=== PATIENT | male | born 1940 | race Caucasian/White ===

== ENCOUNTER → 2016-10-12 | Emergency (ER) | payer MEDICARE ==
[~2016-10-12] VITALS: Ht 185.4 cm; Wt 79.8 kg
[2016-10-12 16:56] LABS: BASOPHILS % (AUTO) 0.5 % (0.0-2.0); DIFF TOTAL % 100 %; EOSINOPHILS # (AUTO) 0.1 /CMM (0.0-0.7); EOSINOPHILS % (AUTO) 1.7 % (0.0-6.0); HEMATOCRIT 32 % (39-51); HEMOGLOBIN 10.6 g/dL (13.5-17.5); LYMPHOCYTES # (AUTO) 1.4 /CMM (0.8-4.8); MEAN CORPUSCULAR HEMOGLOBIN 31 PG (26.0-33.0); MEAN CORPUSCULAR HGB CONC 34 g/dl (31.0-36.0); MEAN CORPUSCULAR VOLUME 92 fL (80-96); MONOCYTES # (AUTO) 0.5 /CMM (0.1-1.30); MONOCYTES % (AUTO) 10.3 % (2.0-12.0); NEUTROPHILS # (AUTO) 2.5 /CMM (1.8-8.9); NEUTROPHILS % (AUTO) 56.5 % (43.0-81.0); PLATELET COUNT (AUTO) 203 /CMM (150-450); RED BLOOD CELL COUNT(AUTO) 3.44 MIL/uL (4.5-6.0); WHITE BLOOD COUNT (AUTO) 4.5 K/uL (4.3-11.0)
[2016-10-12 17:08] LABS: ANION GAP 10 (5-14); CALCIUM, SERUM 8.5 mg/dL (8.5-10.1); CARBON DIOXIDE 31 mmol/L (21-32); CHLORIDE 107 mmol/L (98-107); CREATININE 0.8 mg/dL (0.6-1.3); GLUCOSE 91 mg/dL (74-106); POTASSIUM 3.8 mmol/L (3.5-5.1); SODIUM SERUM 144 mmol/L (136-145); UREA NITROGEN, BLOOD 17 mg/dL (7-18)
[2016-10-12 17:16] LABS: TROPONIN I < 0.017 ng/mL (0.00-0.056)
[2016-10-12 18:33] VITALS: BP 121/77
== END | disposition home or self-care (01) ==
LOC: ER 16:50
DX: R60.0 Localized edema (principal)
CPT/HCPCS: 36415; 71010; 80048; 83880; 84484; 85025; 93005; 93970; 99285; A4606; A6403; Z7610

== ENCOUNTER 2017-11-01 13:02 | Inpatient (IN) | payer MEDICARE ==
[~2017-11-01] VITALS: Ht 185.4 cm; Wt 75.7 kg
--- NOTE | 2017-11-01 13:11 | NUR ---
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 ALERT ORIENTED ABLE TO MOVE EXTREMITIES NO DRIFT. DENIES ANY PAIN. PLACED ON MONITOR. AWAITING MD ORDER.
--- NOTE | 2017-11-01 13:25 | NUR ---
RFA #20 IV ACCESS. BLOOD SAMPLE COLLECTED SENT TO LAB
--- NOTE | 2017-11-01 13:40 | NUR ---
URINE SAMPLE COLLECTED SENT TO LAB
[2017-11-01 14:48] LABS: BASOPHILS % (AUTO) 0.5 % (0.0-2.0); EOSINOPHILS # (AUTO) 0.1 /CMM (0.0-0.7); EOSINOPHILS % (AUTO) 1.4 % (0.0-6.0); HEMATOCRIT 40 % (39-51); HEMOGLOBIN 13.7 g/dL (13.5-17.5); MEAN CORPUSCULAR HEMOGLOBIN 31 PG (26.0-33.0); MEAN CORPUSCULAR HGB CONC 34 g/dl (31.0-36.0); MEAN CORPUSCULAR VOLUME 90 fL (80-96); MONOCYTES # (AUTO) 0.4 /CMM (0.1-1.30); MONOCYTES % (AUTO) 6.5 % (2.0-12.0); NEUTROPHILS # (AUTO) 3.3 /CMM (1.8-8.9); NEUTROPHILS % (AUTO) 57.6 % (43.0-81.0); PLATELET COUNT (AUTO) 194 /CMM (150-450); RDW COEFFICIENT OF VARIATION 13.1 (11.5-15.0); RED BLOOD CELL COUNT(AUTO) 4.45 MIL/uL (4.5-6.0); WHITE BLOOD COUNT (AUTO) 5.8 K/uL (4.3-11.0)
[2017-11-01 15:01] LABS: APPEARANCE,URINE CLEAR (CLEAR); BILIRUBIN,URINE NEGATIVE (NEGATIVE); BLOOD, URINE NEGATIVE Ery/uL (NEGATIVE); COLOR,URINE YELLOW (YELLOW); KETONES,URINE NEGATIVE (NEGATIVE); LEUKOCYTE ESTERASE ,URINE NEGATIVE (NEGATIVE); NITRITE, URINE NEGATIVE (NEGATIVE); PH,URINE 6.5 (5.0-8.0); PROTEIN,URINE NEGATIVE (NEGATIVE); UGLUCOSE NEGATIVE (NEGATIVE); UROBILINOGEN,URINE 0.2 EU/dL (0.2)
[2017-11-01] MEDS ORDERED: DONE10TA44 PO (15:03)
[2017-11-01] MEDS ORDERED: CHOL10002 PO (15:03)
[2017-11-01] MEDS ORDERED: SIMV10TA6 PO (15:03)
[2017-11-01] MEDS ORDERED: MEMA10TA PO (15:03)
[2017-11-01 15:09] LABS: INR 0.94 (0.85-1.15)
[2017-11-01 15:16] LABS: CALCIUM, SERUM 9.1 mg/dL (8.5-10.1); CARBON DIOXIDE 27 mmol/L (21-32); CHLORIDE 106 mmol/L (98-107); CREATININE 0.8 mg/dL (0.6-1.3); GLUCOSE 81 mg/dL (74-106); POTASSIUM 4.2 mmol/L (3.5-5.1); SODIUM SERUM 141 mmol/L (136-145); TROPONIN I < 0.017 ng/mL (0.00-0.056); UREA NITROGEN, BLOOD 12 mg/dL (7-18)
[2017-11-01 15:25] LABS: ALANINE AMINOTRANSFERASE 38 U/L (12-78); ALBUMIN 3.5 g/dL (3.4-5.0); ALKALINE PHOSPHATASE 120 U/L (46-116); ASPARTATE AMINOTRANSFERASE 31 U/L (15-37); BILIRUBIN,DIRECT 0.1 mg/dL (0.0-0.2); BILIRUBIN,TOTAL 0.5 mg/dL (0.2-1.0); TOTAL PROTEIN, SERUM 7.6 g/dL (6.4-8.2)
--- NOTE | 2017-11-01 16:25 | NUR ---
PATIENT ASSIGNED TO TELE 323-2, DX GENERALIZED WEAKNESS, ADMITTING PHYSICIAN DR RIVERA
--- NOTE | 2017-11-01 18:03 | NUR ---
GAVE REPORT TO [facility] TELE ROOM 323-[address] RIVERA DX GENERALZIED WEAKNESS
[2017-11-01] MEDS ORDERED: HYDROCODONE/APAP 5/325MG 1 EACH TABLET PO PRN (19:00)
[2017-11-01] MEDS ORDERED: MAG HYDROX/AL HYDROX/SIMETH 30 ML UDC PO PRN (19:00)
[2017-11-01] MEDS ORDERED: ONDANSETRON HCL/PF 4 MG/2 ML VIAL IVP PRN (19:00)
[2017-11-01] MEDS ORDERED: Z GUARD REMEDY 2 OZ OINT TP PRN (19:00)
[2017-11-01] MEDS ORDERED: ACETAMINOPHEN 325 MG TABLET PO PRN (19:00)
[2017-11-01] MEDS ORDERED: MAGNESIUM HYDROXIDE 30 ML UDC PO PRN (19:00)
[2017-11-01] MEDS ORDERED: ZOLPIDEM TARTRATE 5 MG TABLET PO PRN (19:00)
--- NOTE | 2017-11-01 19:08 | NUR ---
TELE/RN RECEIVE PATIENT FROM E.R. BY [facility] ACCOMPANIED BY FAMILY MEMBER. PATIENT IS AWAKE, ALERT, ORIENTED, COMFORTABLE, NO C/O PAIN, NO DISTRESS NOTED, ADMISSION DONE PER PROTOCOL, PLAN OF CARE DISCUSSED WITH PATIENT AND FAMILY MEMBER VERBALIZED UNDERSTANDING AND IN AGREEMENT TO THE PLAN OF CARE.
--- NOTE | 2017-11-01 19:08 | NUR ---
TELE/RN FALL PRECAUTION INSTITUTED PER PROTOCOL.
[2017-11-01 20:00] VITALS: BP 108/63
[2017-11-01] MEDS: IV NS 0.9% 1,000 ML IV PRN (20:49)
[2017-11-01] MEDS ORDERED: ASPI-605 PO (21:18)
[2017-11-01] MEDS ORDERED: DONEPEZIL 5 MG TABLET PO ONE (23:00)
[2017-11-01] MEDS ORDERED: SIMVASTATIN 10 MG TABLET PO ONE (23:00)
[2017-11-01] MEDS ORDERED: MEMANTINE HCL 5 MG TABLET PO ONE (23:00)
[2017-11-02] VITALS: BP 106/60
--- NOTE | 2017-11-02 01:48 | NUR ---
TELE/RN PATIENT IS SLEEPING AT THIS TIME, AROUSES EASILY, APPEAR COMFORTABLE, NO DISTRESS NOTED, CALL LIGHT IN REACH. WILL CONTINUE TO MONITOR.
[2017-11-02 03:39] LABS: BASOPHILS # (AUTO) 0.1 /CMM (0.0-0.2); EOSINOPHILS # (AUTO) 0.1 /CMM (0.0-0.7); EOSINOPHILS % (AUTO) 1.4 % (0.0-6.0); HEMATOCRIT 36 % (39-51); HEMOGLOBIN 12.4 g/dL (13.5-17.5); LYMPHOCYTES % (AUTO) 34.5 % (20.0-44.0); MEAN CORPUSCULAR HEMOGLOBIN 31 PG (26.0-33.0); MEAN CORPUSCULAR HGB CONC 35 g/dl (31.0-36.0); MEAN CORPUSCULAR VOLUME 89 fL (80-96); MONOCYTES # (AUTO) 0.4 /CMM (0.1-1.30); MONOCYTES % (AUTO) 7.2 % (2.0-12.0); NEUTROPHILS # (AUTO) 3.2 /CMM (1.8-8.9); NEUTROPHILS % (AUTO) 55.9 % (43.0-81.0); PLATELET COUNT (AUTO) 184 /CMM (150-450); RDW COEFFICIENT OF VARIATION 12.6 (11.5-15.0); RED BLOOD CELL COUNT(AUTO) 3.97 MIL/uL (4.5-6.0); WHITE BLOOD COUNT (AUTO) 5.8 K/uL (4.3-11.0)
[2017-11-02 03:54] LABS: CALCIUM, SERUM 8.3 mg/dL (8.5-10.1); CARBON DIOXIDE 26 mmol/L (21-32); CHLORIDE 107 mmol/L (98-107); CREATININE 0.8 mg/dL (0.6-1.3); GLUCOSE 85 mg/dL (74-106); MAGNESIUM 1.8 mg/dL (1.8-2.4); PHOSPHORUS 3.5 mg/dL (2.5-4.9); POTASSIUM 3.7 mmol/L (3.5-5.1); SODIUM SERUM 141 mmol/L (136-145); UREA NITROGEN, BLOOD 15 mg/dL (7-18)
[2017-11-02 03:57] LABS: CHOLESTEROL 165 mg/dL (<200); HDL CHOLESTEROL 44 mg/dL (40-60); LDL 110 mg/dL (0-99); TRIGLYCERIDES 86 mg/dL (30-150)
[2017-11-02 04:00] VITALS: BP 110/60
--- NOTE | 2017-11-02 07:00 | NUR ---
TELE/RN PATIENT IS AWAKE, ALERT, ORIENTED, COMFORTABLE, NO C/O PAIN, NO DISTRESS NOTED, ALL NEEDS ATTENDED AT THIS TIME, WILL CONTINUE TO MONITOR.
--- NOTE | 2017-11-02 07:30 | NUR ---
MS/RN Patient received Patient received from overnight cashier. No needs at this time, denies any pain or discomfort. Fluids infusing as ordered. Call light within reach, patient educated as to the importance of calling for help before getting out of bed, stated understanding. Will continue to monitor.
[2017-11-02 08:00] VITALS: BP 110/72
[2017-11-02 08:27] VITALS: BP 110/72
--- NOTE | 2017-11-02 08:45 | NUR ---
MS/RN Medications Morning medications administered as ordered.
[2017-11-02] MEDS ORDERED: MEMANTINE HCL 5 MG TABLET PO SCH (09:00)
--- NOTE | 2017-11-02 09:15 | NUR ---
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
[2017-11-02] MEDS: IV NS 0.9% 1,000 ML IV PRN (09:37)
--- NOTE | 2017-11-02 09:56 | NUR ---
MS/RN Labs Morning labs reviewed: -TSH 2.002 -LDL 11. -Trop -ve X3
--- NOTE | 2017-11-02 10:30 | NUR ---
MS/RN S/B Dr Maldonado Seen by Dr Maldonado - changes made to medications.
[2017-11-02 12:43] VITALS: BP_SYST 110; BP_SYST 120; BP_SYST 121; BP_DIAS 62; BP_DIAS 64; BP_DIAS 83
--- NOTE | 2017-11-02 14:00 | NUR ---
MS/RN S/B Dr Hansen Seen by Dr Hansen - patient may be discharged to home this afternoon, needs to follow up with primary care doctor in 7-10 days.
--- NOTE | 2017-11-02 15:25 | NUR ---
MS/RN Exit care Exit care prepared and copies made of chart.
--- NOTE | 2017-11-02 15:27 | NUR ---
MS/RN S/B Dr Max Seen by Dr Max - patient cleared for discharge.
--- NOTE | 2017-11-02 16:14 | NUR ---
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 Heplock and name bands removed. Education to patient and daughter provided about when to return to the nearest emergency room and signs and symptoms. Copy of exit care and chart provided. Escorted to main lobby by [facility].
[2017-11-02] MEDS ORDERED: DONEPEZIL 5 MG TABLET PO SCH (22:00)
[2017-11-02] MEDS ORDERED: SIMVASTATIN 10 MG TABLET PO SCH (22:00)
== END 2017-11-02 16:00 | disposition home or self-care (01) | DRG 73 ==
LOC: ER 13:04 → TELE 17:53
PROVIDERS: ADMIT Internal Medicine; ATTEND Internal Medicine
DX: G90.8 Other disorders of autonomic nervous system (principal); G93.40 Encephalopathy, unspecified; R00.1 Bradycardia, unspecified; F03.90 Unspecified dementia, unspecified severity, without behavioral disturbance, psychotic disturbance, mood disturbance, and anxiety; E78.5 Hyperlipidemia, unspecified; I10 Essential (primary) hypertension; T44.1X5A Adverse effect of other parasympathomimetics [cholinergics], initial encounter; Y92.009 Unspecified place in unspecified non-institutional (private) residence as the place of occurrence of the external cause
CPT/HCPCS: 36415; 70450-TC; 71045-TC; 80048-TC; 80061-TC; 80076-TC; 81000-TC; 82962-TC; 83605-TC; 83735-TC; 84100-TC; 84443-TC; 84484-TC; 85025-TC; 85730-TC; 87040-TC; 87081-TC; 87086-TC; 93307-TC; A4606; J7030; Z7610